=== PATIENT | male | born 1945 | race Caucasian/White ===

== ENCOUNTER 2018-03-26 11:53 | Inpatient (IN) | payer MEDICARE ==
[2018-03-26 12:47] LABS: ADD MAN DIFF? NO
[2018-03-26] MEDS: CEFEPIME 2GM/50 ML (PMX) 50 ML IVPB (12:54)
[2018-03-26 12:55] LABS: ABNORMAL IP MESSAGE 1; BASOPHILS % 0.2 % (0.0-2.0); HEMATOCRIT 40.5 % (42.0-52.0); LYMPHOCYTES # 0.6 10^3/ul (0.8-2.9); LYMPHOCYTES % 5.3 % (15.0-51.0); MEAN CORPUSCULAR HEMOGLOBIN 29.8 pg (29.0-33.0); MEAN CORPUSCULAR HGB CONC 34.6 g/dl (32.0-37.0); MEAN CORPUSCULAR VOLUME 86.2 fl (82.0-101.0); MEAN PLATELET VOLUME 12.4 fl (7.4-10.4); MONOCYTES % 9.2 % (0.0-11.0); NEUTROPHIL # 9.3 10^3/ul (1.6-7.5); NEUTROPHILS % 84.8 % (39.0-77.0); PLATELET COUNT 228 10^3/UL (140-415); POSITIVE DIFF @See below; RED CELL DISTRIBUTION WIDTH 12.1 % (11.5-14.5)
[2018-03-26] MEDS: LORAZEPAM 2 MG INJ IV (12:55)
[2018-03-26] MEDS: SODIUM CHLORIDE 0.9% 1L BAG IV* (12:55)
[2018-03-26 13:13] LABS: MAGNESIUM 2.8 mg/dl (1.7-2.5)
[2018-03-26 13:13] LABS: PHOSPHORUS 7.7 mg/dl (2.5-4.9)
[2018-03-26 13:14] LABS: ALANINE AMINOTRANSFERASE 46 IU/L (13-69); ALBUMIN 3.5 g/dl (3.3-4.9); ALBUMIN/GLOBULIN RATIO 1.09; ALKALINE PHOSPHATASE 144 IU/L (42-121); AMYLASE 172 U/L (11-123); ANION GAP 26 (8-16); ASPARTATE AMINO TRANSFERASE 56 IU/L (15-46); BILIRUBIN,INDIRECT 0.4 mg/dl (0-1.1); BILIRUBIN,TOTAL 0.4 mg/dl (0.2-1.3); BLOOD UREA NITROGEN 93 mg/dl (7-20); CALCIUM 7.9 mg/dl (8.4-10.2); CARBON DIOXIDE 22 mmol/L (21-31); CHLORIDE 80 mmol/L (97-110); LIPASE 717 U/L (23-300); POTASSIUM 4.6 mmol/L (3.5-5.1); SODIUM 123 mmol/L (135-144); TOTAL PROTEIN 6.7 g/dl (6.1-8.1)
[2018-03-26 13:22] LABS: INR 1.24; PARTIAL THROMBOPLASTIN TIME 27.2 Sec (25.0-35.0); PROTIME 15.8 Sec (11.9-14.9); PT RATIO 1.2
[2018-03-26 13:23] LABS: GLUCOSE 1091 mg/dl (70-220)
[2018-03-26] MEDS ORDERED: SODIUM CHLORIDE 23.4% 77 MEQ, POTASSIUM CHLORIDE 40 MEQ in DEXTROSE 10% 1,000 ML IV ×2 (13:23→13:41)
[2018-03-26] MEDS ORDERED: SODIUM CHLORIDE 23.4% 77 MEQ, POTASSIUM CHLORIDE 30 MEQ in DEXTROSE 10% 1,000 ML IV (13:23)
[2018-03-26] MEDS ORDERED: SOD CHLORIDE 0.9% 1,000 ML IV ×2 (13:23→13:41)
[2018-03-26] MEDS ORDERED: POTASSIUM CHLORIDE 40 MEQ in SOD CHLORIDE 0.9% 1,000 ML IV ×2 (13:23→13:41)
[2018-03-26] MEDS ORDERED: SODIUM CHLORIDE 23.4% 77 MEQ in DEXTROSE 10% 1,000 ML IV ×2 (13:23→13:41)
[2018-03-26] MEDS ORDERED: POTASSIUM CHLORIDE 30 MEQ in SOD CHLORIDE 0.9% 1,000 ML IV (13:23)
[2018-03-26 13:26] LABS: LACTIC ACID 4.4 mmol/L (0.5-2.0)
[2018-03-26 13:28] LABS: TROPONIN-I 0.172 ng/ml (0.000-0.120)
[2018-03-26] MEDS: LACTATED RINGER'S 750 ML IV (13:30)
[2018-03-26] MEDS ORDERED: DEXTROSE 50% 50 ML SYRINGE IV ×4 (13:30→14:00)
[2018-03-26] MEDS ORDERED: INSULIN REGULAR, HUMAN 100 UNIT in SOD CHLORIDE 0.9% 100 ML IV (13:30)
[2018-03-26 13:40] LABS: Arterial Base Excess -5.2 mmol/L (-3.0-3); Arterial Blood Gas Oxygen Sat 34.6 mmHG (95.0-100.0); Arterial COHb 0.1 % (0.0-3.0); Arterial Fraction of Oxyhgb 34.1 % (93.0-99.0); Arterial HCO3 20.4 mmol/L (22.0-26.0); Arterial MetHb 1.4 % (0.0-1.5); Arterial Total Hemglobin 13.4 g/dl (12.0-18.0); Arterial pCO2 40.4 mmhg (35-45); MODE ROOM AIR; Sample Type Blood venous; Site VENOUS LINE
[2018-03-26] MEDS ORDERED: NACL 0.9% 3 ML SYG IV (14:00)
[2018-03-26] MEDS ORDERED: hydrALAzine 20 MG INJ IV (14:00)
[2018-03-26] MEDS ORDERED: morphine 2 MG INJ IV (14:00)
[2018-03-26] MEDS ORDERED: HEPARIN 1000 UNITS/ML 10 ML INJ IV (14:00)
[2018-03-26] MEDS ORDERED: ONDANSETRON 4 MG INJ IV (14:00)
[2018-03-26] MEDS: LEVOFLOXACIN 750MG/D5W (PMX) 150 ML IVPB (14:00)
[2018-03-26] MEDS ORDERED: NA PHOSPHATE/BIPHOS 133 ML ENEMA PR (14:00)
[2018-03-26] MEDS: HEPARIN 1000 UNITS/ML 10 ML INJ IV (14:00)
[2018-03-26] MEDS ORDERED: NITROGLYCERIN (SL) 0.4 MG TAB SL (14:00)
[2018-03-26] MEDS ORDERED: ALBUTEROL/IPRATROPIUM (NEB) 3 ML AMP HHN (14:00)
[2018-03-26] MEDS ORDERED: HEPARIN 25000 UNITS/250 ML 250 ML IV (14:00)
[2018-03-26] MEDS: VANCOMYCIN 1 GM (PMX) 250 ML IVPB (14:10)
[2018-03-26 14:24] LABS: CREATINE KINASE 118 IU/L (23-200)
[2018-03-26 14:33] LABS: ADD UMIC YES; UR ASCORBIC ACID NEGATIVE (NEGATIVE); UR BILIRUBIN (Dip) NEGATIVE (NEGATIVE); UR BLOOD (Dip) 2+ mg/dL (NEGATIVE); UR CLARITY SLIGHTLY CLOUDY (CLEAR); UR COLOR YELLOW (YELLOW); UR GLUCOSE (Dip) 3+ mg/dL (NEGATIVE); UR KETONES (Dip) NEGATIVE (NEGATIVE); UR LEUKOCYTE ESTERASE (Dip) NEGATIVE Leu/ul (NEGATIVE); UR NITRITE (Dip) NEGATIVE (NEGATIVE); UR RBC 5 /HPF (0-5); UR SPECIFIC GRAVITY (Dip) 1.015 (1.003-1.030); UR TOTAL PROTEIN (Dip) NEGATIVE (NEGATIVE); UR UROBILINOGEN (Dip) NEGATIVE (NEGATIVE); UR WBC 1 /HPF (0-5)
[2018-03-26 14:34] LABS: CK-MB 2.83 ng/ml (0.0-2.4)
[2018-03-26] MEDS: INSULIN REGULAR, HUMAN 100 UNIT in SOD CHLORIDE 0.9% 100 ML IV (14:50)
[2018-03-26 14:55] LABS: FREE T4 (FREE THYROXINE) 1.01 ng/dl (0.78-2.44)
[2018-03-26] MEDS: POTASSIUM CHLORIDE 30 MEQ in SOD CHLORIDE 0.9% 1,000 ML IV (15:00)
[2018-03-26 15:09] LABS: AADO2 Venous 79.6 mmHg; MODE ROOM AIR; MetHgb Venous 1.4 %; Sample Type Blood venous; Site VENOUS LINE; Venous COHb 0.2 %; Venous Fraction OxyHgb 31.4 %; Venous Oxygen Sat 31.9 mmHG (55.0-75.0); Venous Total Hemglobin 15.8 g/dl
[2018-03-26 15:23] LABS: ANION GAP 23 (8-16); BLOOD UREA NITROGEN 89 mg/dl (7-20); CALCIUM 7.3 mg/dl (8.4-10.2); CARBON DIOXIDE 20 mmol/L (21-31); CHLORIDE 89 mmol/L (97-110); CREATININE 4.25 mg/dl (0.61-1.24); MAGNESIUM 2.8 mg/dl (1.7-2.5); PHOSPHORUS 6.7 mg/dl (2.5-4.9); POTASSIUM 4.6 mmol/L (3.5-5.1); SODIUM 127 mmol/L (135-144)
[2018-03-26 15:26] LABS: LACTIC ACID 2.3 mmol/L (0.5-2.0)
[2018-03-26 15:32] LABS: GLUCOSE 943 mg/dl (70-220)
[2018-03-26] MEDS: FAMOTIDINE 20 MG INJ IV (15:48)
[2018-03-26] MEDS: ASPIRIN 600 MG SUPP PR (15:48)
[2018-03-26 16:38] LABS: CREATININE,URINE RANDOM 21.91 mg/dl (20-370); CREATININE,URINE RANDOM 22.48 mg/dl (20-370); PROTEIN/CREAT RATIO 0.73 RATIO
[2018-03-26 16:40] LABS: SODIUM,URINE RANDOM < 13 mmol/L (30-90)
[2018-03-26] MEDS: SODIUM CHLORIDE 23.4% 77 MEQ, POTASSIUM CHLORIDE 30 MEQ in DEXTROSE 10% 1,000 ML IV ×2 (17:18→23:00)
[2018-03-26 17:48] LABS: CREATINE KINASE 128 IU/L (23-200)
[2018-03-26 17:54] LABS: LACTIC ACID 8.9 mmol/L (0.5-2.0)
[2018-03-26 18:02] LABS: CK INDEX 2.3; CK-MB 2.97 ng/ml (0.0-2.4)
[2018-03-26 18:11] LABS: TROPONIN-I 0.136 ng/ml (0.000-0.120)
[2018-03-26 18:31] LABS: ANION GAP 23 (8-16); BLOOD UREA NITROGEN 85 mg/dl (7-20); CARBON DIOXIDE 17 mmol/L (21-31); CHLORIDE 99 mmol/L (97-110); CREATININE 3.74 mg/dl (0.61-1.24); PHOSPHORUS 5.6 mg/dl (2.5-4.9); POTASSIUM 3.6 mmol/L (3.5-5.1); SODIUM 135 mmol/L (135-144)
[2018-03-26 18:38] LABS: GLUCOSE 487 mg/dl (70-220)
[2018-03-26] MEDS: ACCU-CHEK XX ×5 (19:00→23:00)
[2018-03-26 21:03] LABS: MODE NASAL CANNULA; MetHgb Venous 0.4 %; Sample Type Blood venous; Site VENOUS LINE; Venous COHb 0.4 %; Venous Fraction OxyHgb 51.3 %; Venous Oxygen Sat 51.7 mmHG (55.0-75.0)
[2018-03-26 21:52] LABS: ACETONE NEGATIVE (NEGATIVE)
[2018-03-26 22:28] LABS: ANION GAP 15 (8-16); BLOOD UREA NITROGEN 79 mg/dl (7-20); CALCIUM 7.7 mg/dl (8.4-10.2); CARBON DIOXIDE 21 mmol/L (21-31); CHLORIDE 107 mmol/L (97-110); CREATININE 2.77 mg/dl (0.61-1.24); GLUCOSE 136 mg/dl (70-220); MAGNESIUM 2.9 mg/dl (1.7-2.5); PHOSPHORUS 3.8 mg/dl (2.5-4.9); POTASSIUM 3.8 mmol/L (3.5-5.1); SODIUM 139 mmol/L (135-144)
[2018-03-26 22:32] LABS: LACTIC ACID 4.9 mmol/L (0.5-2.0)
[2018-03-27] MEDS: ACCU-CHEK XX ×9 (00:45→08:11)
[2018-03-27 01:14] LABS: LACTIC ACID 3.3 mmol/L (0.5-2.0)
[2018-03-27] MEDS: INSULIN REGULAR, HUMAN 100 UNIT in SOD CHLORIDE 0.9% 100 ML IV (02:00)
[2018-03-27 02:13] LABS: MODE NASAL CANNULA; MetHgb Venous 0.5 %; Sample Type Blood venous; Site VENOUS LINE; Venous COHb 0.3 %; Venous Fraction OxyHgb 45.5 %; Venous Oxygen Sat 45.9 mmHG (55.0-75.0); Venous Total Hemglobin 14.1 g/dl
[2018-03-27 02:21] LABS: PROTEIN, TOTAL 6.6 g/dL (6.1-8.1)
[2018-03-27 02:39] LABS: ANION GAP 12 (8-16); BLOOD UREA NITROGEN 69 mg/dl (7-20); CALCIUM 7.5 mg/dl (8.4-10.2); CARBON DIOXIDE 24 mmol/L (21-31); CHLORIDE 113 mmol/L (97-110); CREATININE 2.24 mg/dl (0.61-1.24); MAGNESIUM 2.8 mg/dl (1.7-2.5); PHOSPHORUS 2.8 mg/dl (2.5-4.9); SODIUM 145 mmol/L (135-144)
[2018-03-27 02:44] LABS: LACTIC ACID 2.9 mmol/L (0.5-2.0)
[2018-03-27 02:45] LABS: GLUCOSE 49 mg/dl (70-220)
[2018-03-27 03:21] LABS: ANION GAP 12 (8-16); BLOOD UREA NITROGEN 65 mg/dl (7-20); CALCIUM 7.5 mg/dl (8.4-10.2); CARBON DIOXIDE 22 mmol/L (21-31); CHLORIDE 114 mmol/L (97-110); CREATININE 2.07 mg/dl (0.61-1.24); GLUCOSE 88 mg/dl (70-220); POTASSIUM 3.8 mmol/L (3.5-5.1); SODIUM 144 mmol/L (135-144)
[2018-03-27] MEDS: POTASSIUM CHLORIDE 30 MEQ in SOD CHLORIDE 0.9% 1,000 ML IV (03:28)
[2018-03-27] MEDS: SODIUM CHLORIDE 23.4% 77 MEQ, POTASSIUM CHLORIDE 30 MEQ in DEXTROSE 10% 1,000 ML IV (04:12)
[2018-03-27 05:52] LABS: MODE NASAL CANNULA; MetHgb Venous 0.3 %; Sample Type Blood venous; Site VENOUS LINE; Venous COHb 0.4 %; Venous Fraction OxyHgb 39.8 %; Venous Oxygen Sat 40.1 mmHG (55.0-75.0); Venous Total Hemglobin 13.5 g/dl
[2018-03-27] MEDS ORDERED: GLUCOSE GEL 15 GRAM TUBE BUCCAL ×2 (06:00→09:30)
[2018-03-27] MEDS ORDERED: DEXTROSE 50% 50 ML SYRINGE IV ×3 (06:00→09:30)
[2018-03-27] MEDS ORDERED: GLUCOSE GEL 15 GRAM TUBE PO ×4 (06:00→09:30)
[2018-03-27] MEDS ORDERED: GLUCAGON 1 MG INJ IM ×2 (06:00→09:30)
[2018-03-27] MEDS: INSULIN GLARGINE [LANTus] (100 UNITS/ML) SYG SC (06:27)
[2018-03-27 06:47] LABS: ADD MAN DIFF? NO
[2018-03-27 06:54] LABS: BASOPHILS % 0.1 % (0.0-2.0); EOSINOPHILS % 0.1 % (0.0-7.0); HEMATOCRIT 34.4 % (42.0-52.0); HEMOGLOBIN 11.8 g/dl (14.0-18.0); LYMPHOCYTES % 11.9 % (15.0-51.0); MEAN CORPUSCULAR HEMOGLOBIN 29.5 pg (29.0-33.0); MEAN CORPUSCULAR HGB CONC 34.3 g/dl (32.0-37.0); MEAN PLATELET VOLUME 12.3 fl (7.4-10.4); MONOCYTE # 0.7 10^3/ul (0.3-0.9); MONOCYTES % 8.7 % (0.0-11.0); NEUTROPHIL # 6.3 10^3/ul (1.6-7.5); NEUTROPHILS % 78.5 % (39.0-77.0); PLATELET COUNT 155 10^3/UL (140-415); RED CELL DISTRIBUTION WIDTH 12.6 % (11.5-14.5)
[2018-03-27 06:54] LABS: WHITE BLOOD COUNT 8.1 10^3/ul (4.8-10.8)
[2018-03-27 07:18] LABS: LACTIC ACID 1.8 mmol/L (0.5-2.0)
[2018-03-27 07:21] LABS: CHOL/HDL RATIO 3.3 RATIO; HDL CHOLESTEROL 26 mg/dl (31-75); LDL CHOLESTEROL,CALCULATED 43 mg/dl; TRIGLYCERIDES 93 mg/dl (0-149)
[2018-03-27 07:21] LABS: CHOLESTEROL 88 mg/dl (100-200)
[2018-03-27 07:22] LABS: ANION GAP 9 (8-16); BLOOD UREA NITROGEN 58 mg/dl (7-20); CALCIUM 7.3 mg/dl (8.4-10.2); CARBON DIOXIDE 23 mmol/L (21-31); CHLORIDE 117 mmol/L (97-110); CREATININE 1.74 mg/dl (0.61-1.24); GLUCOSE 86 mg/dl (70-220); MAGNESIUM 2.6 mg/dl (1.7-2.5); PHOSPHORUS 2.4 mg/dl (2.5-4.9); POTASSIUM 3.8 mmol/L (3.5-5.1); SODIUM 145 mmol/L (135-144)
[2018-03-27 07:23] LABS: LIPASE 109 U/L (23-300)
[2018-03-27] MEDS: FAMOTIDINE 20 MG INJ IV (08:05)
[2018-03-27] MEDS: ASPIRIN 300 MG SUPP PR (08:05)
[2018-03-27] MEDS: SOD CHLORIDE 0.9% 500 ML IV (09:42)
[2018-03-27 09:46] LABS: AADO2 Arterial 34.7 mmHg (7.0-24.0); Allen Test ACCEPTAB; Arterial Base Excess -1.9 mmol/L (-3.0-3); Arterial Blood Gas Oxygen Sat 95.2 mmHG (95.0-100.0); Arterial COHb 0.1 % (0.0-3.0); Arterial Fraction of Oxyhgb 94.9 % (93.0-99.0); Arterial HCO3 21.8 mmol/L (22.0-26.0); Arterial MetHb 0.2 % (0.0-1.5); Arterial Total Hemglobin 13.3 g/dl (12.0-18.0); Arterial pCO2 33.6 mmhg (35-45); MODE ROOM AIR; Site Right Radial
[2018-03-27] MEDS ORDERED: [UNRECOGNIZED DRUG - OTHER] IV (10:00)
[2018-03-27] MEDS ORDERED: POTASSIUM PHOSPHATE IV (10:00)
[2018-03-27] MEDS ORDERED: POTASSIUM CHLORIDE IV (10:00)
[2018-03-27 10:07] LABS: LACTIC ACID 2.1 mmol/L (0.5-2.0)
[2018-03-27 10:23] LABS: IRON 33 ug/dl (35-150)
[2018-03-27 10:25] LABS: ANION GAP 19 (8-16); BLOOD UREA NITROGEN 67 mg/dl (7-20); CALCIUM 7.5 mg/dl (8.4-10.2); CARBON DIOXIDE 22 mmol/L (21-31); CHLORIDE 115 mmol/L (97-110); CREATININE 2.17 mg/dl (0.61-1.24); MAGNESIUM 2.7 mg/dl (1.7-2.5); PHOSPHORUS 3.1 mg/dl (2.5-4.9); SODIUM 152 mmol/L (135-144)
[2018-03-27 10:27] LABS: GLUCOSE 41 mg/dl (70-220)
[2018-03-27] MEDS: INSULIN ASPART [NOVOLOG] 3 ML PEN SC ×3 (10:30→20:35)
[2018-03-27 10:32] LABS: % IRON SATURATION 18 % SAT (22-52); TOTAL IRON BINDING CAPACITY 179 ug/dl (241-421)
[2018-03-27] MEDS: DEXTROSE 50% 50 ML SYRINGE IV (10:32)
[2018-03-27] MEDS: LEVOFLOXACIN 500MG/D5W (PMX) 100 ML IVPB (10:43)
[2018-03-27] MEDS ORDERED: POTASSIUM PHOSPHATE 10 MEQ in SOD CHLORIDE 0.9% 250 ML IVPB (11:00)
[2018-03-27 11:13] LABS: TROPONIN-I 0.127 ng/ml (0.000-0.120)
[2018-03-27] MEDS: LACTATED RINGER'S 500 ML IV ×2 (12:30→17:50)
[2018-03-27 16:02] LABS: ALBUMIN 3.2 g/dL (3.8-4.8); ALPHA-1-GLOBULINS 0.6 g/dL (0.2-0.3); ALPHA-2-GLOBULINS 1.3 g/dL (0.5-0.9); BETA 2 GLOBULINS 0.4 g/dL (0.2-0.5); BETA GLOBULINS 0.5 g/dL (0.4-0.6); GAMMA GLOBULINS 0.7 g/dL (0.8-1.7)
[2018-03-27] MEDS: LACTATED RINGER'S 1,000 ML IV ×2 (16:35→22:50)
[2018-03-27 20:32] LABS: PTH CALCIUM 7.8 mg/dL (8.6-10.3)
[2018-03-27] MEDS: LORAZEPAM 2 MG INJ IV (20:44)
[2018-03-27 22:43] LABS: ANION GAP 12 (8-16); BLOOD UREA NITROGEN 35 mg/dl (7-20); CALCIUM 7.5 mg/dl (8.4-10.2); CARBON DIOXIDE 25 mmol/L (21-31); CHLORIDE 117 mmol/L (97-110); CREATININE 1.27 mg/dl (0.61-1.24); GLUCOSE 215 mg/dl (70-220); MAGNESIUM 2.3 mg/dl (1.7-2.5); POTASSIUM 3.6 mmol/L (3.5-5.1); SODIUM 150 mmol/L (135-144)
[2018-03-27 22:53] LABS: TROPONIN-I 0.092 ng/ml (0.000-0.120)
[2018-03-28] MEDS: ACCU-CHEK XX ×3 (01:39→20:19)
[2018-03-28] MEDS: LORAZEPAM 2 MG INJ IV ×2 (02:17→12:46)
[2018-03-28 02:56] LABS: ADD MAN DIFF? NO
[2018-03-28 02:58] LABS: BASOPHILS % 0.1 % (0.0-2.0); EOSINOPHILS # 0.1 10^3/ul (0.0-0.5); EOSINOPHILS % 1.2 % (0.0-7.0); HEMATOCRIT 37.7 % (42.0-52.0); HEMOGLOBIN 12.6 g/dl (14.0-18.0); MEAN CORPUSCULAR HEMOGLOBIN 29.4 pg (29.0-33.0); MEAN CORPUSCULAR HGB CONC 33.4 g/dl (32.0-37.0); MEAN CORPUSCULAR VOLUME 87.9 fl (82.0-101.0); MEAN PLATELET VOLUME 11.5 fl (7.4-10.4); MONOCYTE # 0.7 10^3/ul (0.3-0.9); MONOCYTES % 8.3 % (0.0-11.0); NEUTROPHIL # 6.7 10^3/ul (1.6-7.5); NEUTROPHILS % 76.7 % (39.0-77.0); PLATELET COUNT 202 10^3/UL (140-415); RED BLOOD COUNT 4.29 10^6/ul (4.70-6.10)
[2018-03-28 02:58] LABS: WHITE BLOOD COUNT 8.7 10^3/ul (4.8-10.8)
[2018-03-28 03:18] LABS: ANION GAP 12 (8-16); BLOOD UREA NITROGEN 29 mg/dl (7-20); CALCIUM 7.6 mg/dl (8.4-10.2); CARBON DIOXIDE 26 mmol/L (21-31); CHLORIDE 116 mmol/L (97-110); CREATININE 1.22 mg/dl (0.61-1.24); GLUCOSE 254 mg/dl (70-220); MAGNESIUM 2.3 mg/dl (1.7-2.5); PHOSPHORUS 2.1 mg/dl (2.5-4.9); POTASSIUM 3.7 mmol/L (3.5-5.1); SODIUM 150 mmol/L (135-144)
[2018-03-28 03:36] LABS: TROPONIN-I 0.105 ng/ml (0.000-0.120)
[2018-03-28 07:31] LABS: PTH INTACT 89 pg/mL (14-64)
[2018-03-28] MEDS: INSULIN GLARGINE [LANTus] (100 UNITS/ML) SYG SC (08:06)
[2018-03-28] MEDS: INSULIN ASPART [NOVOLOG] 3 ML PEN SC ×4 (08:06→20:18)
[2018-03-28] MEDS: MULTIVITAMINS THERAPEUTIC TAB PO (09:36)
[2018-03-28] MEDS: FAMOTIDINE 20 MG INJ IV (09:36)
[2018-03-28] MEDS: ASPIRIN 300 MG SUPP PR (09:36)
[2018-03-28] MEDS: FERROUS SULFATE (SR) 142 MG TAB PO ×2 (11:00→20:18)
[2018-03-28] MEDS: DEXTROSE 5% IV (11:39)
[2018-03-28] MEDS: POTASSIUM PHOSPHATE IV (11:39)
[2018-03-28] MEDS: POTASSIUM CHLORIDE IV (11:39)
[2018-03-28] MEDS: POTASSIUM PHOSPHATE 20 MEQ in SOD CHLORIDE 0.9% 250 ML IVPB (11:39)
[2018-03-28] MEDS: LINAGLIPTIN 5 MG TABLET PO (16:22)
[2018-03-28] MEDS: LACTATED RINGER'S 500 ML IV (16:23)
[2018-03-28 17:10] LABS: ANION GAP 11 (8-16); BLOOD UREA NITROGEN 22 mg/dl (7-20); CALCIUM 7.6 mg/dl (8.4-10.2); CARBON DIOXIDE 31 mmol/L (21-31); CHLORIDE 116 mmol/L (97-110); CREATININE 1.12 mg/dl (0.61-1.24); GLUCOSE 118 mg/dl (70-220); POTASSIUM 3.9 mmol/L (3.5-5.1); SODIUM 154 mmol/L (135-144)
[2018-03-28] MEDS: metFORMIN 500 MG TAB PO (17:42)
[2018-03-29] MEDS: ACCU-CHEK XX ×5 (02:00→21:00)
[2018-03-29] MEDS: DEXTROSE 5% IV ×2 (02:27→06:10)
[2018-03-29] MEDS: POTASSIUM CHLORIDE IV ×2 (02:27→06:10)
[2018-03-29] MEDS: POTASSIUM PHOSPHATE IV ×2 (02:27→06:10)
[2018-03-29 06:14] LABS: ADD MAN DIFF? NO
[2018-03-29 06:35] LABS: WHITE BLOOD COUNT 9.9 10^3/ul (4.8-10.8)
[2018-03-29 06:35] LABS: BASOPHILS % 0.4 % (0.0-2.0); EOSINOPHILS # 0.3 10^3/ul (0.0-0.5); EOSINOPHILS % 3.2 % (0.0-7.0); HEMATOCRIT 36.8 % (42.0-52.0); HEMOGLOBIN 12.3 g/dl (14.0-18.0); LYMPHOCYTES # 1.5 10^3/ul (0.8-2.9); LYMPHOCYTES % 14.9 % (15.0-51.0); MEAN CORPUSCULAR HEMOGLOBIN 30.4 pg (29.0-33.0); MEAN CORPUSCULAR HGB CONC 33.4 g/dl (32.0-37.0); MEAN CORPUSCULAR VOLUME 90.9 fl (82.0-101.0); MEAN PLATELET VOLUME 11.8 fl (7.4-10.4); MONOCYTE # 0.9 10^3/ul (0.3-0.9); MONOCYTES % 8.8 % (0.0-11.0); NEUTROPHIL # 6.8 10^3/ul (1.6-7.5); NEUTROPHILS % 69.1 % (39.0-77.0); PLATELET COUNT 195 10^3/UL (140-415); RED BLOOD COUNT 4.05 10^6/ul (4.70-6.10); RED CELL DISTRIBUTION WIDTH 12.9 % (11.5-14.5)
[2018-03-29 06:47] LABS: ANION GAP 10 (8-16); BLOOD UREA NITROGEN 16 mg/dl (7-20); CALCIUM 7.3 mg/dl (8.4-10.2); CARBON DIOXIDE 29 mmol/L (21-31); CHLORIDE 112 mmol/L (97-110); CREATININE 1.03 mg/dl (0.61-1.24); GLUCOSE 309 mg/dl (70-220); POTASSIUM 3.4 mmol/L (3.5-5.1); SODIUM 148 mmol/L (135-144)
[2018-03-29 07:10] LABS: MAGNESIUM 1.8 mg/dl (1.7-2.5)
[2018-03-29 07:10] LABS: PHOSPHORUS 2.9 mg/dl (2.5-4.9)
[2018-03-29] MEDS: FAMOTIDINE 20 MG INJ IV (08:24)
[2018-03-29] MEDS: LEVOFLOXACIN 500MG/D5W (PMX) 100 ML IVPB (08:24)
[2018-03-29] MEDS: LINAGLIPTIN 5 MG TABLET PO (08:24)
[2018-03-29] MEDS: ASPIRIN 81 MG TAB PO (08:24)
[2018-03-29] MEDS: FERROUS SULFATE (SR) 142 MG TAB PO ×2 (08:24→21:06)
[2018-03-29] MEDS: MULTIVITAMINS THERAPEUTIC TAB PO (08:24)
[2018-03-29] MEDS: INSULIN ASPART [NOVOLOG] 3 ML PEN SC ×4 (08:32→21:00)
[2018-03-29] MEDS: INSULIN GLARGINE [LANTus] (100 UNITS/ML) SYG SC (08:33)
[2018-03-29] MEDS: 1/2 NS + KCL 20 MEQ 1,000 ML IV ×3 (12:19→21:07)
[2018-03-29] MEDS: NYSTATIN 15 GM CR TOP ×2 (16:01→21:08)
[2018-03-30] MEDS: ACCU-CHEK XX ×5 (02:00→20:15)
[2018-03-30 06:55] LABS: ADD MAN DIFF? NO
[2018-03-30 07:02] LABS: BASOPHILS % 0.3 % (0.0-2.0); EOSINOPHILS # 0.4 10^3/ul (0.0-0.5); EOSINOPHILS % 4.5 % (0.0-7.0); HEMATOCRIT 35.1 % (42.0-52.0); HEMOGLOBIN 11.6 g/dl (14.0-18.0); LYMPHOCYTES # 1.6 10^3/ul (0.8-2.9); LYMPHOCYTES % 15.9 % (15.0-51.0); MEAN CORPUSCULAR HEMOGLOBIN 29.6 pg (29.0-33.0); MEAN CORPUSCULAR VOLUME 89.5 fl (82.0-101.0); MEAN PLATELET VOLUME 11.3 fl (7.4-10.4); MONOCYTES % 9.9 % (0.0-11.0); NEUTROPHIL # 6.6 10^3/ul (1.6-7.5); NEUTROPHILS % 66.8 % (39.0-77.0); PLATELET COUNT 198 10^3/UL (140-415); RED BLOOD COUNT 3.92 10^6/ul (4.70-6.10); RED CELL DISTRIBUTION WIDTH 12.7 % (11.5-14.5)
[2018-03-30 07:02] LABS: WHITE BLOOD COUNT 9.8 10^3/ul (4.8-10.8)
[2018-03-30 07:28] LABS: ANION GAP 10 (8-16); BLOOD UREA NITROGEN 11 mg/dl (7-20); CALCIUM 7.4 mg/dl (8.4-10.2); CARBON DIOXIDE 29 mmol/L (21-31); CHLORIDE 108 mmol/L (97-110); CREATININE 0.91 mg/dl (0.61-1.24); GLUCOSE 159 mg/dl (70-220); POTASSIUM 4.2 mmol/L (3.5-5.1); SODIUM 143 mmol/L (135-144)
[2018-03-30] MEDS: LINAGLIPTIN 5 MG TABLET PO (07:50)
[2018-03-30] MEDS: INSULIN ASPART [NOVOLOG] 3 ML PEN SC ×4 (07:55→20:14)
[2018-03-30] MEDS: INSULIN GLARGINE [LANTus] (100 UNITS/ML) SYG SC (07:56)
[2018-03-30] MEDS: FAMOTIDINE 20 MG INJ IV (09:25)
[2018-03-30] MEDS: NYSTATIN 15 GM CR TOP ×2 (09:25→20:14)
[2018-03-30] MEDS: ASPIRIN 81 MG TAB PO (09:25)
[2018-03-30] MEDS: 1/2 NS + KCL 20 MEQ 1,000 ML IV (09:25)
[2018-03-30] MEDS: MULTIVITAMINS THERAPEUTIC TAB PO (09:25)
[2018-03-30] MEDS: FERROUS SULFATE (SR) 142 MG TAB PO ×2 (09:25→20:08)
[2018-03-30 11:39] LABS: ADD UMIC YES; UR ASCORBIC ACID NEGATIVE (NEGATIVE); UR BACTERIA FEW /HPF (NONE SEEN); UR BILIRUBIN (Dip) NEGATIVE (NEGATIVE); UR BLOOD (Dip) 3+ mg/dL (NEGATIVE); UR CLARITY SLIGHTLY CLOUDY (CLEAR); UR COLOR YELLOW (YELLOW); UR GLUCOSE (Dip) 3+ mg/dL (NEGATIVE); UR KETONES (Dip) NEGATIVE (NEGATIVE); UR LEUKOCYTE ESTERASE (Dip) 2+ Leu/ul (NEGATIVE); UR MUCUS FEW /HPF (NONE SEEN); UR NITRITE (Dip) NEGATIVE (NEGATIVE); UR RBC 75 /HPF (0-5); UR SPECIFIC GRAVITY (Dip) 1.003 (1.003-1.030); UR SQUAMOUS EPITHELIAL CELL FEW /HPF (FEW); UR TOTAL PROTEIN (Dip) 1+ mg/dl (NEGATIVE); UR UROBILINOGEN (Dip) NEGATIVE (NEGATIVE); UR WBC 17 /HPF (0-5)
[2018-03-30] MEDS: FLUCONAZOLE 200 MG (PMX) 100 ML IVPB (12:55)
[2018-03-31] MEDS: ACCU-CHEK XX ×5 (02:00→21:00)
[2018-03-31 06:52] LABS: ADD MAN DIFF? NO
[2018-03-31 07:04] LABS: BASOPHILS % 0.2 % (0.0-2.0); EOSINOPHILS # 0.3 10^3/ul (0.0-0.5); EOSINOPHILS % 3.2 % (0.0-7.0); HEMATOCRIT 35.1 % (42.0-52.0); HEMOGLOBIN 11.9 g/dl (14.0-18.0); LYMPHOCYTES # 1.7 10^3/ul (0.8-2.9); LYMPHOCYTES % 15.9 % (15.0-51.0); MEAN CORPUSCULAR HEMOGLOBIN 29.5 pg (29.0-33.0); MEAN CORPUSCULAR HGB CONC 33.9 g/dl (32.0-37.0); MEAN CORPUSCULAR VOLUME 86.9 fl (82.0-101.0); MEAN PLATELET VOLUME 11.2 fl (7.4-10.4); MONOCYTE # 1.1 10^3/ul (0.3-0.9); MONOCYTES % 10.6 % (0.0-11.0); NEUTROPHIL # 7.1 10^3/ul (1.6-7.5); NEUTROPHILS % 67.5 % (39.0-77.0); PLATELET COUNT 212 10^3/UL (140-415); RED BLOOD COUNT 4.04 10^6/ul (4.70-6.10); RED CELL DISTRIBUTION WIDTH 12.3 % (11.5-14.5)
[2018-03-31 07:04] LABS: WHITE BLOOD COUNT 10.6 10^3/ul (4.8-10.8)
[2018-03-31 07:19] LABS: ANION GAP 9 (8-16); BLOOD UREA NITROGEN 9 mg/dl (7-20); CALCIUM 7.7 mg/dl (8.4-10.2); CARBON DIOXIDE 27 mmol/L (21-31); CHLORIDE 107 mmol/L (97-110); GLUCOSE 193 mg/dl (70-220); POTASSIUM 3.5 mmol/L (3.5-5.1); SODIUM 139 mmol/L (135-144)
[2018-03-31] MEDS: FERROUS SULFATE (SR) 142 MG TAB PO (08:27)
[2018-03-31] MEDS: LINAGLIPTIN 5 MG TABLET PO (08:27)
[2018-03-31] MEDS: ASPIRIN 81 MG TAB PO (08:27)
[2018-03-31] MEDS: MULTIVITAMINS THERAPEUTIC TAB PO (08:27)
[2018-03-31] MEDS: NYSTATIN 15 GM CR TOP ×2 (09:00→21:34)
[2018-03-31] MEDS: INSULIN ASPART [NOVOLOG] 3 ML PEN SC ×4 (10:14→21:00)
[2018-03-31] MEDS: INSULIN GLARGINE [LANTus] (100 UNITS/ML) SYG SC (10:14)
[2018-03-31] MEDS: FAMOTIDINE 20 MG INJ IV (10:46)
[2018-03-31] MEDS: FLUCONAZOLE 200 MG (PMX) 100 ML IVPB (10:47)
[2018-03-31 14:13] LABS: ADD UMIC YES; UR ASCORBIC ACID NEGATIVE (NEGATIVE); UR BACTERIA FEW /HPF (NONE SEEN); UR BILIRUBIN (Dip) NEGATIVE (NEGATIVE); UR BLOOD (Dip) 2+ mg/dL (NEGATIVE); UR CLARITY CLEAR (CLEAR); UR COLOR YELLOW (YELLOW); UR GLUCOSE (Dip) 3+ mg/dL (NEGATIVE); UR KETONES (Dip) NEGATIVE (NEGATIVE); UR LEUKOCYTE ESTERASE (Dip) TRACE Leu/ul (NEGATIVE); UR NITRITE (Dip) NEGATIVE (NEGATIVE); UR RBC 86 /HPF (0-5); UR TOTAL PROTEIN (Dip) 1+ mg/dl (NEGATIVE); UR UROBILINOGEN (Dip) NEGATIVE (NEGATIVE); UR WBC 14 /HPF (0-5)
[2018-03-31] MEDS: metFORMIN 500 MG TAB PO (17:23)
[2018-03-31] MEDS: FERROUS SULFATE 60 MG/ML 5ML CUP PO (23:17)
[2018-04-01] MEDS: ACCU-CHEK XX ×5 (01:43→20:50)
[2018-04-01 06:02] LABS: ADD MAN DIFF? NO
[2018-04-01 06:08] LABS: WHITE BLOOD COUNT 20.1 10^3/ul (4.8-10.8)
[2018-04-01 06:08] LABS: ABNORMAL IP MESSAGE 1; BASOPHIL # 0.1 10^3/ul (0.0-0.1); BASOPHILS % 0.4 % (0.0-2.0); EOSINOPHILS # 0.1 10^3/ul (0.0-0.5); EOSINOPHILS % 0.4 % (0.0-7.0); HEMATOCRIT 43.6 % (42.0-52.0); HEMOGLOBIN 14.5 g/dl (14.0-18.0); LYMPHOCYTES # 1.3 10^3/ul (0.8-2.9); LYMPHOCYTES % 6.6 % (15.0-51.0); MEAN CORPUSCULAR HEMOGLOBIN 29.9 pg (29.0-33.0); MEAN CORPUSCULAR HGB CONC 33.3 g/dl (32.0-37.0); MEAN CORPUSCULAR VOLUME 89.9 fl (82.0-101.0); MEAN PLATELET VOLUME 11.6 fl (7.4-10.4); MONOCYTE # 1.8 10^3/ul (0.3-0.9); MONOCYTES % 8.7 % (0.0-11.0); NEUTROPHIL # 16.4 10^3/ul (1.6-7.5); NEUTROPHILS % 81.6 % (39.0-77.0); PLATELET COUNT 240 10^3/UL (140-415); POSITIVE DIFF @See below; RED BLOOD COUNT 4.85 10^6/ul (4.70-6.10); RED CELL DISTRIBUTION WIDTH 12.5 % (11.5-14.5)
[2018-04-01 08:07] LABS: ANION GAP 19 (8-16); BLOOD UREA NITROGEN 13 mg/dl (7-20); CALCIUM 8.3 mg/dl (8.4-10.2); CARBON DIOXIDE 21 mmol/L (21-31); CHLORIDE 106 mmol/L (97-110); CREATININE 0.99 mg/dl (0.61-1.24); GLUCOSE 262 mg/dl (70-220); POTASSIUM 4.5 mmol/L (3.5-5.1); SODIUM 141 mmol/L (135-144)
[2018-04-01] MEDS: INSULIN ASPART [NOVOLOG] 3 ML PEN SC ×7 (08:40→21:00)
[2018-04-01] MEDS: INSULIN GLARGINE [LANTus] (100 UNITS/ML) SYG SC ×2 (08:41→20:28)
[2018-04-01] MEDS: FERROUS SULFATE 60 MG/ML 5ML CUP PO ×2 (08:43→20:49)
[2018-04-01] MEDS: FAMOTIDINE 20 MG INJ IV (08:43)
[2018-04-01] MEDS: MULTIVITAMINS THERAPEUTIC TAB PO (08:43)
[2018-04-01] MEDS: ASPIRIN 81 MG TAB PO (08:43)
[2018-04-01] MEDS: LINAGLIPTIN 5 MG TABLET PO (08:44)
[2018-04-01] MEDS: NYSTATIN 15 GM CR TOP ×2 (08:44→22:50)
[2018-04-01] MEDS: LEVOFLOXACIN 750 MG TABLET PO (12:24)
[2018-04-01] MEDS: FLUCONAZOLE 200 MG (PMX) 100 ML IVPB (12:46)
[2018-04-01 13:41] LABS: LACTIC ACID 2.1 mmol/L (0.5-2.0)
[2018-04-01] MEDS: TAMSULOSIN (SR) 0.4 MG CAP PO (20:20)
[2018-04-01] MEDS: HEPARIN 5,000 UNIT/0.5 ML VIAL SC (20:23)
[2018-04-02 01:49] LABS: ADD UMIC YES; UR ASCORBIC ACID NEGATIVE (NEGATIVE); UR BILIRUBIN (Dip) NEGATIVE (NEGATIVE); UR BLOOD (Dip) 3+ mg/dL (NEGATIVE); UR CLARITY CLEAR (CLEAR); UR COLOR YELLOW (YELLOW); UR GLUCOSE (Dip) 3+ mg/dL (NEGATIVE); UR KETONES (Dip) NEGATIVE (NEGATIVE); UR LEUKOCYTE ESTERASE (Dip) NEGATIVE Leu/ul (NEGATIVE); UR NITRITE (Dip) NEGATIVE (NEGATIVE); UR RBC 3 /HPF (0-5); UR SPECIFIC GRAVITY (Dip) 1.005 (1.003-1.030); UR TOTAL PROTEIN (Dip) NEGATIVE (NEGATIVE); UR UROBILINOGEN (Dip) NEGATIVE (NEGATIVE); UR WBC 3 /HPF (0-5)
[2018-04-02] MEDS: ACCU-CHEK XX ×5 (02:00→21:00)
[2018-04-02] MEDS: SOD CHLORIDE 0.9% 500 ML IV (05:44)
[2018-04-02] MEDS: FAMOTIDINE 20 MG INJ IV (08:19)
[2018-04-02] MEDS: FERROUS SULFATE 60 MG/ML 5ML CUP PO ×2 (08:19→21:56)
[2018-04-02] MEDS: ASPIRIN 81 MG TAB PO (08:19)
[2018-04-02] MEDS: MULTIVITAMINS THERAPEUTIC TAB PO (08:19)
[2018-04-02] MEDS: INSULIN GLARGINE [LANTus] (100 UNITS/ML) SYG SC (08:21)
[2018-04-02] MEDS: INSULIN ASPART [NOVOLOG] 3 ML PEN SC ×7 (08:23→21:00)
[2018-04-02] MEDS: HEPARIN 5,000 UNIT/0.5 ML VIAL SC ×2 (08:27→22:01)
[2018-04-02 08:53] LABS: ADD MAN DIFF? NO
[2018-04-02 08:59] LABS: BASOPHILS % 0.2 % (0.0-2.0); EOSINOPHILS # 0.2 10^3/ul (0.0-0.5); EOSINOPHILS % 1.4 % (0.0-7.0); HEMATOCRIT 36.5 % (42.0-52.0); HEMOGLOBIN 11.9 g/dl (14.0-18.0); LYMPHOCYTES # 1.8 10^3/ul (0.8-2.9); LYMPHOCYTES % 16.5 % (15.0-51.0); MEAN CORPUSCULAR HEMOGLOBIN 29.5 pg (29.0-33.0); MEAN CORPUSCULAR HGB CONC 32.6 g/dl (32.0-37.0); MEAN CORPUSCULAR VOLUME 90.6 fl (82.0-101.0); MEAN PLATELET VOLUME 10.8 fl (7.4-10.4); MONOCYTE # 1.1 10^3/ul (0.3-0.9); MONOCYTES % 9.4 % (0.0-11.0); NEUTROPHIL # 7.9 10^3/ul (1.6-7.5); NEUTROPHILS % 70.4 % (39.0-77.0); PLATELET COUNT 269 10^3/UL (140-415); RED BLOOD COUNT 4.03 10^6/ul (4.70-6.10); RED CELL DISTRIBUTION WIDTH 12.8 % (11.5-14.5)
[2018-04-02 08:59] LABS: WHITE BLOOD COUNT 11.2 10^3/ul (4.8-10.8)
[2018-04-02 09:20] LABS: LACTIC ACID 0.9 mmol/L (0.5-2.0)
[2018-04-02 09:23] LABS: ANION GAP 9 (8-16); BLOOD UREA NITROGEN 14 mg/dl (7-20); CALCIUM 7.8 mg/dl (8.4-10.2); CARBON DIOXIDE 29 mmol/L (21-31); CHLORIDE 107 mmol/L (97-110); CREATININE 1.05 mg/dl (0.61-1.24); GLUCOSE 190 mg/dl (70-220); POTASSIUM 4.1 mmol/L (3.5-5.1); SODIUM 141 mmol/L (135-144)
[2018-04-02] MEDS: LEVOFLOXACIN 750 MG TABLET PO (12:29)
[2018-04-02] MEDS: NYSTATIN 15 GM CR TOP ×2 (12:30→22:07)
[2018-04-02] MEDS: CALCIUM CARBONATE 500 MG CHEW TAB PO ×2 (13:26→21:55)
[2018-04-02] MEDS: FINASTERIDE 5 MG TAB PO (13:26)
[2018-04-02] MEDS ORDERED: morphine LIQ (10 MG/5 ML) CUP PO (16:30)
[2018-04-02] MEDS: TAMSULOSIN (SR) 0.4 MG CAP PO (21:56)
[2018-04-03] MEDS: ACCU-CHEK XX ×5 (02:00→21:00)
[2018-04-03 04:54] LABS: ADD MAN DIFF? NO
[2018-04-03 05:04] LABS: WHITE BLOOD COUNT 9.6 10^3/ul (4.8-10.8)
[2018-04-03 05:04] LABS: BASOPHILS % 0.3 % (0.0-2.0); EOSINOPHILS # 0.3 10^3/ul (0.0-0.5); EOSINOPHILS % 2.7 % (0.0-7.0); HEMATOCRIT 37.5 % (42.0-52.0); HEMOGLOBIN 12.2 g/dl (14.0-18.0); LYMPHOCYTES # 1.7 10^3/ul (0.8-2.9); MEAN CORPUSCULAR HEMOGLOBIN 29.1 pg (29.0-33.0); MEAN CORPUSCULAR HGB CONC 32.5 g/dl (32.0-37.0); MEAN CORPUSCULAR VOLUME 89.5 fl (82.0-101.0); MEAN PLATELET VOLUME 10.7 fl (7.4-10.4); MONOCYTE # 0.8 10^3/ul (0.3-0.9); MONOCYTES % 8.2 % (0.0-11.0); NEUTROPHIL # 6.6 10^3/ul (1.6-7.5); NEUTROPHILS % 68.7 % (39.0-77.0); PLATELET COUNT 303 10^3/UL (140-415); RED BLOOD COUNT 4.19 10^6/ul (4.70-6.10); RED CELL DISTRIBUTION WIDTH 12.6 % (11.5-14.5)
[2018-04-03 05:25] LABS: ANION GAP 11 (8-16); BLOOD UREA NITROGEN 11 mg/dl (7-20); CALCIUM 8.3 mg/dl (8.4-10.2); CARBON DIOXIDE 28 mmol/L (21-31); CHLORIDE 105 mmol/L (97-110); CREATININE 0.92 mg/dl (0.61-1.24); GLUCOSE 183 mg/dl (70-220); POTASSIUM 3.4 mmol/L (3.5-5.1); SODIUM 141 mmol/L (135-144)
[2018-04-03] MEDS: INSULIN GLARGINE [LANTus] (100 UNITS/ML) SYG SC (08:20)
[2018-04-03] MEDS: HEPARIN 5,000 UNIT/0.5 ML VIAL SC ×2 (08:20→22:08)
[2018-04-03] MEDS: INSULIN ASPART [NOVOLOG] 3 ML PEN SC ×7 (08:22→22:18)
[2018-04-03] MEDS: FINASTERIDE 5 MG TAB PO (08:23)
[2018-04-03] MEDS: CALCIUM CARBONATE 500 MG CHEW TAB PO ×3 (08:23→22:07)
[2018-04-03] MEDS: TAMSULOSIN (SR) 0.4 MG CAP PO ×2 (08:23→22:07)
[2018-04-03] MEDS: MULTIVITAMINS THERAPEUTIC TAB PO (08:23)
[2018-04-03] MEDS: ASPIRIN 81 MG TAB PO (08:23)
[2018-04-03] MEDS: FAMOTIDINE 20 MG INJ IV (08:24)
[2018-04-03] MEDS: FERROUS SULFATE 60 MG/ML 5ML CUP PO ×2 (08:24→22:07)
[2018-04-03] MEDS: ERGOCALCIFEROL 50,000 UNIT CAP PO (08:40)
[2018-04-03] MEDS: NYSTATIN 15 GM CR TOP ×2 (09:00→21:00)
[2018-04-03] MEDS: LEVOFLOXACIN 750 MG TABLET PO (12:17)
[2018-04-03] MEDS: POTASSIUM CHLORIDE 20 MEQ POWDER FOR ORAL SOLN PO (12:18)
[2018-04-04] MEDS: ACCU-CHEK XX ×5 (02:00→21:00)
[2018-04-04] MEDS: ACETAMINOPHEN 325 MG TAB PO (04:23)
[2018-04-04] MEDS: MULTIVITAMINS THERAPEUTIC TAB PO (08:05)
[2018-04-04] MEDS: ASPIRIN 81 MG TAB PO (08:05)
[2018-04-04] MEDS: CALCIUM CARBONATE 500 MG CHEW TAB PO ×3 (08:05→18:17)
[2018-04-04] MEDS: FAMOTIDINE 20 MG INJ IV (08:05)
[2018-04-04] MEDS: FERROUS SULFATE 60 MG/ML 5ML CUP PO ×2 (08:05→21:45)
[2018-04-04] MEDS: TAMSULOSIN (SR) 0.4 MG CAP PO ×2 (08:05→21:45)
[2018-04-04] MEDS: FINASTERIDE 5 MG TAB PO (08:05)
[2018-04-04] MEDS: HEPARIN 5,000 UNIT/0.5 ML VIAL SC ×2 (08:07→21:46)
[2018-04-04] MEDS: INSULIN ASPART [NOVOLOG] 3 ML PEN SC ×7 (08:08→21:00)
[2018-04-04] MEDS: INSULIN GLARGINE [LANTus] (100 UNITS/ML) SYG SC (08:11)
[2018-04-04] MEDS: NYSTATIN 15 GM CR TOP ×3 (09:00→21:51)
[2018-04-04] MEDS: LEVOFLOXACIN 750 MG TABLET PO (11:42)
[2018-04-05] MEDS: ACCU-CHEK XX ×5 (01:58→20:50)
[2018-04-05] MEDS: ZOLPIDEM 5 MG TAB PO (02:08)
[2018-04-05 07:07] LABS: ALANINE AMINOTRANSFERASE 38 IU/L (13-69); ALBUMIN/GLOBULIN RATIO 0.88; ALKALINE PHOSPHATASE 104 IU/L (42-121); ANION GAP 12 (8-16); ASPARTATE AMINO TRANSFERASE 42 IU/L (15-46); BILIRUBIN,INDIRECT 0.3 mg/dl (0-1.1); BILIRUBIN,TOTAL 0.3 mg/dl (0.2-1.3); BLOOD UREA NITROGEN 9 mg/dl (7-20); CALCIUM 8.6 mg/dl (8.4-10.2); CARBON DIOXIDE 28 mmol/L (21-31); CHLORIDE 101 mmol/L (97-110); CREATININE 0.93 mg/dl (0.61-1.24); GLUCOSE 141 mg/dl (70-220); POTASSIUM 3.4 mmol/L (3.5-5.1); SODIUM 138 mmol/L (135-144); TOTAL PROTEIN 6.4 g/dl (6.1-8.1)
[2018-04-05] MEDS: INSULIN ASPART [NOVOLOG] 3 ML PEN SC ×7 (07:52→20:47)
[2018-04-05] MEDS: FAMOTIDINE 20 MG INJ IV (08:07)
[2018-04-05] MEDS: FINASTERIDE 5 MG TAB PO (08:09)
[2018-04-05] MEDS: INSULIN GLARGINE [LANTus] (100 UNITS/ML) SYG SC (08:09)
[2018-04-05] MEDS: MULTIVITAMINS THERAPEUTIC TAB PO (08:09)
[2018-04-05] MEDS: TAMSULOSIN (SR) 0.4 MG CAP PO ×2 (08:09→20:43)
[2018-04-05] MEDS: ASPIRIN 81 MG TAB PO (08:09)
[2018-04-05] MEDS: CALCIUM CARBONATE 500 MG CHEW TAB PO ×3 (08:09→18:40)
[2018-04-05] MEDS: HEPARIN 5,000 UNIT/0.5 ML VIAL SC ×2 (08:10→20:49)
[2018-04-05] MEDS: NYSTATIN 15 GM CR TOP ×2 (08:10→20:51)
[2018-04-05] MEDS: FERROUS SULFATE 60 MG/ML 5ML CUP PO ×2 (08:15→20:43)
[2018-04-05] MEDS: POTASSIUM CHLORIDE (SR) 20 MEQ TAB PO (12:06)
[2018-04-05] MEDS: CEFTRIAXONE 1 GM/50 ML (PMX) 50 ML IVPB (12:37)
[2018-04-05] MEDS: CLINDAMYCIN 300 MG CAP PO ×2 (17:23→23:50)
[2018-04-06] MEDS: ACCU-CHEK XX ×5 (02:00→21:00)
[2018-04-06] MEDS: CLINDAMYCIN 300 MG CAP PO ×4 (06:06→23:50)
[2018-04-06] MEDS: INSULIN ASPART [NOVOLOG] 3 ML PEN SC ×7 (08:31→21:00)
[2018-04-06] MEDS: INSULIN GLARGINE [LANTus] (100 UNITS/ML) SYG SC (08:32)
[2018-04-06] MEDS: HEPARIN 5,000 UNIT/0.5 ML VIAL SC ×2 (08:33→20:51)
[2018-04-06] MEDS: ASPIRIN 81 MG TAB PO (08:34)
[2018-04-06] MEDS: CALCIUM CARBONATE 500 MG CHEW TAB PO ×3 (08:34→17:39)
[2018-04-06] MEDS: FAMOTIDINE 20 MG INJ IV (08:34)
[2018-04-06] MEDS: TAMSULOSIN (SR) 0.4 MG CAP PO ×2 (08:34→20:50)
[2018-04-06] MEDS: FINASTERIDE 5 MG TAB PO (08:34)
[2018-04-06] MEDS: FERROUS SULFATE 60 MG/ML 5ML CUP PO ×2 (08:34→20:50)
[2018-04-06] MEDS: MULTIVITAMINS THERAPEUTIC TAB PO (08:34)
[2018-04-06] MEDS: NYSTATIN 15 GM CR TOP ×2 (08:35→20:49)
[2018-04-07] MEDS: ACCU-CHEK XX ×5 (02:00→21:00)
[2018-04-07] MEDS: CLINDAMYCIN 300 MG CAP PO ×2 (06:22→12:14)
[2018-04-07] MEDS: INSULIN ASPART [NOVOLOG] 3 ML PEN SC ×7 (08:01→21:00)
[2018-04-07] MEDS: INSULIN GLARGINE [LANTus] (100 UNITS/ML) SYG SC (08:03)
[2018-04-07] MEDS: ASPIRIN 81 MG TAB PO (08:04)
[2018-04-07] MEDS: FAMOTIDINE 20 MG INJ IV (08:04)
[2018-04-07] MEDS: MULTIVITAMINS THERAPEUTIC TAB PO (08:04)
[2018-04-07] MEDS: FERROUS SULFATE 60 MG/ML 5ML CUP PO ×2 (08:04→21:32)
[2018-04-07] MEDS: CALCIUM CARBONATE 500 MG CHEW TAB PO ×3 (08:04→18:26)
[2018-04-07] MEDS: FINASTERIDE 5 MG TAB PO (08:04)
[2018-04-07] MEDS: TAMSULOSIN (SR) 0.4 MG CAP PO ×2 (08:04→21:32)
[2018-04-07] MEDS: HEPARIN 5,000 UNIT/0.5 ML VIAL SC ×2 (08:04→21:40)
[2018-04-07] MEDS: NYSTATIN 15 GM CR TOP ×2 (08:05→21:32)
[2018-04-07] MEDS: CEFTRIAXONE 1 GM/50 ML (PMX) 50 ML IVPB (14:54)
[2018-04-08] MEDS: ACCU-CHEK XX ×6 (02:00→21:43)
[2018-04-08] MEDS: INSULIN ASPART [NOVOLOG] 3 ML PEN SC ×6 (08:00→21:00)
[2018-04-08] MEDS: FERROUS SULFATE 60 MG/ML 5ML CUP PO ×2 (08:45→21:41)
[2018-04-08] MEDS: FINASTERIDE 5 MG TAB PO (08:45)
[2018-04-08] MEDS: MULTIVITAMINS THERAPEUTIC TAB PO (08:45)
[2018-04-08] MEDS: ASPIRIN 81 MG TAB PO (08:45)
[2018-04-08] MEDS: FAMOTIDINE 20 MG INJ IV (08:46)
[2018-04-08] MEDS: CALCIUM CARBONATE 500 MG CHEW TAB PO ×3 (08:46→18:15)
[2018-04-08] MEDS: TAMSULOSIN (SR) 0.4 MG CAP PO ×2 (08:46→21:42)
[2018-04-08] MEDS: INSULIN GLARGINE [LANTus] (100 UNITS/ML) SYG SC (08:47)
[2018-04-08] MEDS: HEPARIN 5,000 UNIT/0.5 ML VIAL SC ×2 (08:48→21:42)
[2018-04-08] MEDS: NYSTATIN 15 GM CR TOP ×2 (08:56→21:43)
[2018-04-08] MEDS: CEFTRIAXONE 1 GM/50 ML (PMX) 50 ML IVPB (15:01)
[2018-04-08] MEDS: REPAGLINIDE 1 MG TAB PO (18:15)
[2018-04-08] MEDS: FAMOTIDINE 20 MG TAB PO (21:41)
[2018-04-08] MEDS: HYDROCODONE/APAP (5/325) TAB PO (21:42)
[2018-04-09] MEDS: INSULIN ASPART [NOVOLOG] 3 ML PEN SC ×4 (08:00→20:55)
[2018-04-09] MEDS: INSULIN GLARGINE [LANTus] (100 UNITS/ML) SYG SC (08:02)
[2018-04-09] MEDS: HEPARIN 5,000 UNIT/0.5 ML VIAL SC ×2 (08:02→20:57)
[2018-04-09] MEDS: FINASTERIDE 5 MG TAB PO (08:03)
[2018-04-09] MEDS: CALCIUM CARBONATE 500 MG CHEW TAB PO ×3 (08:03→18:19)
[2018-04-09] MEDS: TAMSULOSIN (SR) 0.4 MG CAP PO ×2 (08:03→20:55)
[2018-04-09] MEDS: MULTIVITAMINS THERAPEUTIC TAB PO (08:03)
[2018-04-09] MEDS: ASPIRIN 81 MG TAB PO (08:03)
[2018-04-09] MEDS: FERROUS SULFATE 60 MG/ML 5ML CUP PO ×2 (08:03→20:55)
[2018-04-09] MEDS: REPAGLINIDE 1 MG TAB PO ×3 (08:03→17:05)
[2018-04-09] MEDS: NYSTATIN 15 GM CR TOP ×2 (08:04→21:27)
[2018-04-09] MEDS: ACCU-CHEK XX ×4 (08:13→21:00)
[2018-04-09] MEDS: CEFTRIAXONE 1 GM/50 ML (PMX) 50 ML IVPB (14:53)
[2018-04-09] MEDS: FAMOTIDINE 20 MG TAB PO (20:55)
[2018-04-10] MEDS: ACCU-CHEK XX ×5 (01:58→20:52)
[2018-04-10] MEDS: INSULIN ASPART [NOVOLOG] 3 ML PEN SC ×4 (08:00→20:44)
[2018-04-10] MEDS: ERGOCALCIFEROL 50,000 UNIT CAP PO (08:03)
[2018-04-10] MEDS: CALCIUM CARBONATE 500 MG CHEW TAB PO ×3 (08:04→18:35)
[2018-04-10] MEDS: REPAGLINIDE 1 MG TAB PO ×3 (08:04→17:52)
[2018-04-10] MEDS: FINASTERIDE 5 MG TAB PO (08:04)
[2018-04-10] MEDS: ASPIRIN 81 MG TAB PO (08:04)
[2018-04-10] MEDS: MULTIVITAMINS THERAPEUTIC TAB PO (08:04)
[2018-04-10] MEDS: FERROUS SULFATE 60 MG/ML 5ML CUP PO ×2 (08:04→20:51)
[2018-04-10] MEDS: TAMSULOSIN (SR) 0.4 MG CAP PO ×2 (08:04→20:51)
[2018-04-10] MEDS: HEPARIN 5,000 UNIT/0.5 ML VIAL SC ×2 (08:09→20:45)
[2018-04-10] MEDS: INSULIN GLARGINE [LANTus] (100 UNITS/ML) SYG SC (08:10)
[2018-04-10 08:43] LABS: ADD MAN DIFF? NO
[2018-04-10 08:49] LABS: WHITE BLOOD COUNT 8.4 10^3/ul (4.8-10.8)
[2018-04-10 08:49] LABS: BASOPHIL # 0.1 10^3/ul (0.0-0.1); BASOPHILS % 0.7 % (0.0-2.0); EOSINOPHILS # 0.4 10^3/ul (0.0-0.5); EOSINOPHILS % 4.6 % (0.0-7.0); HEMATOCRIT 42.8 % (42.0-52.0); HEMOGLOBIN 14.1 g/dl (14.0-18.0); LYMPHOCYTES # 2.3 10^3/ul (0.8-2.9); LYMPHOCYTES % 26.8 % (15.0-51.0); MEAN CORPUSCULAR HEMOGLOBIN 29.4 pg (29.0-33.0); MEAN CORPUSCULAR HGB CONC 32.9 g/dl (32.0-37.0); MEAN CORPUSCULAR VOLUME 89.2 fl (82.0-101.0); MEAN PLATELET VOLUME 10.4 fl (7.4-10.4); MONOCYTE # 0.8 10^3/ul (0.3-0.9); MONOCYTES % 9.2 % (0.0-11.0); NEUTROPHIL # 4.9 10^3/ul (1.6-7.5); NEUTROPHILS % 58.3 % (39.0-77.0); PLATELET COUNT 368 10^3/UL (140-415)
[2018-04-10] MEDS: NYSTATIN 15 GM CR TOP ×2 (09:00→20:53)
[2018-04-10 09:09] LABS: ANION GAP 11 (8-16); BLOOD UREA NITROGEN 10 mg/dl (7-20); CARBON DIOXIDE 32 mmol/L (21-31); CHLORIDE 100 mmol/L (97-110); CREATININE 0.99 mg/dl (0.61-1.24); GLUCOSE 169 mg/dl (70-220); POTASSIUM 3.8 mmol/L (3.5-5.1); SODIUM 139 mmol/L (135-144)
[2018-04-10] MEDS: CEFTRIAXONE 1 GM/50 ML (PMX) 50 ML IVPB (15:00)
[2018-04-10 19:53] LABS: ANION GAP 11 (8-16); BLOOD UREA NITROGEN 11 mg/dl (7-20); CALCIUM 9.1 mg/dl (8.4-10.2); CARBON DIOXIDE 34 mmol/L (21-31); CHLORIDE 97 mmol/L (97-110); CREATININE 0.98 mg/dl (0.61-1.24); GLUCOSE 183 mg/dl (70-220); POTASSIUM 4.2 mmol/L (3.5-5.1); SODIUM 138 mmol/L (135-144)
[2018-04-10] MEDS: FAMOTIDINE 20 MG TAB PO (20:51)
[2018-04-11] MEDS: ACCU-CHEK XX ×5 (02:00→20:54)
[2018-04-11] MEDS: INSULIN ASPART [NOVOLOG] 3 ML PEN SC ×4 (08:00→20:50)
[2018-04-11] MEDS: INSULIN GLARGINE [LANTus] (100 UNITS/ML) SYG SC (08:05)
[2018-04-11] MEDS: HEPARIN 5,000 UNIT/0.5 ML VIAL SC ×2 (08:06→20:52)
[2018-04-11] MEDS: FINASTERIDE 5 MG TAB PO (08:06)
[2018-04-11] MEDS: MULTIVITAMINS THERAPEUTIC TAB PO (08:06)
[2018-04-11] MEDS: ASPIRIN 81 MG TAB PO (08:06)
[2018-04-11] MEDS: TAMSULOSIN (SR) 0.4 MG CAP PO ×2 (08:06→20:53)
[2018-04-11] MEDS: CALCIUM CARBONATE 500 MG CHEW TAB PO ×3 (08:06→18:26)
[2018-04-11] MEDS: REPAGLINIDE 1 MG TAB PO ×3 (08:07→17:22)
[2018-04-11] MEDS: NYSTATIN 15 GM CR TOP ×2 (08:07→20:54)
[2018-04-11] MEDS: FERROUS SULFATE 60 MG/ML 5ML CUP PO ×2 (08:07→20:53)
[2018-04-11] MEDS: FAMOTIDINE 20 MG TAB PO (20:53)
[2018-04-12] MEDS: ACCU-CHEK XX ×6 (02:00→20:25)
[2018-04-12] MEDS: INSULIN ASPART [NOVOLOG] 3 ML PEN SC ×4 (08:00→20:11)
[2018-04-12] MEDS: FERROUS SULFATE 60 MG/ML 5ML CUP PO ×2 (08:11→20:11)
[2018-04-12] MEDS: CALCIUM CARBONATE 500 MG CHEW TAB PO ×3 (08:11→17:59)
[2018-04-12] MEDS: MULTIVITAMINS THERAPEUTIC TAB PO (08:12)
[2018-04-12] MEDS: HEPARIN 5,000 UNIT/0.5 ML VIAL SC ×2 (08:12→20:13)
[2018-04-12] MEDS: FINASTERIDE 5 MG TAB PO (08:12)
[2018-04-12] MEDS: ASPIRIN 81 MG TAB PO (08:12)
[2018-04-12] MEDS: REPAGLINIDE 1 MG TAB PO ×3 (08:12→17:22)
[2018-04-12] MEDS: TAMSULOSIN (SR) 0.4 MG CAP PO ×2 (08:12→20:11)
[2018-04-12] MEDS: INSULIN GLARGINE [LANTus] (100 UNITS/ML) SYG SC (08:13)
[2018-04-12] MEDS: NYSTATIN 15 GM CR TOP ×2 (08:14→20:13)
[2018-04-12] MEDS: FAMOTIDINE 20 MG TAB PO (20:11)
[2018-04-12] MEDS: HYDROCODONE/APAP (5/325) TAB PO (20:14)
[2018-04-13] MEDS: ACCU-CHEK XX ×5 (07:30→21:00)
[2018-04-13] MEDS: MULTIVITAMINS THERAPEUTIC TAB PO (08:00)
[2018-04-13] MEDS: CALCIUM CARBONATE 500 MG CHEW TAB PO ×3 (08:00→18:04)
[2018-04-13] MEDS: FERROUS SULFATE 60 MG/ML 5ML CUP PO ×2 (08:00→20:49)
[2018-04-13] MEDS: REPAGLINIDE 1 MG TAB PO ×3 (08:00→17:24)
[2018-04-13] MEDS: ASPIRIN 81 MG TAB PO (08:00)
[2018-04-13] MEDS: INSULIN ASPART [NOVOLOG] 3 ML PEN SC ×4 (08:00→21:00)
[2018-04-13] MEDS: FINASTERIDE 5 MG TAB PO (08:00)
[2018-04-13] MEDS: TAMSULOSIN (SR) 0.4 MG CAP PO ×2 (08:00→20:49)
[2018-04-13] MEDS: HEPARIN 5,000 UNIT/0.5 ML VIAL SC ×2 (08:02→20:51)
[2018-04-13] MEDS: INSULIN GLARGINE [LANTus] (100 UNITS/ML) SYG SC (08:02)
[2018-04-13] MEDS: NYSTATIN 15 GM CR TOP (08:03)
[2018-04-13] MEDS: FAMOTIDINE 20 MG TAB PO (20:49)
[2018-04-14] MEDS: NYSTATIN 15 GM CR TOP ×3 (01:54→20:44)
[2018-04-14] MEDS: ACCU-CHEK XX ×5 (02:00→21:00)
[2018-04-14] MEDS: INSULIN ASPART [NOVOLOG] 3 ML PEN SC ×4 (07:57→20:50)
[2018-04-14] MEDS: INSULIN GLARGINE [LANTus] (100 UNITS/ML) SYG SC (08:17)
[2018-04-14] MEDS: HEPARIN 5,000 UNIT/0.5 ML VIAL SC ×2 (08:18→20:49)
[2018-04-14] MEDS: TAMSULOSIN (SR) 0.4 MG CAP PO ×2 (08:18→20:44)
[2018-04-14] MEDS: FINASTERIDE 5 MG TAB PO (08:18)
[2018-04-14] MEDS: ASPIRIN 81 MG TAB PO (08:19)
[2018-04-14] MEDS: CALCIUM CARBONATE 500 MG CHEW TAB PO ×3 (08:19→18:21)
[2018-04-14] MEDS: REPAGLINIDE 1 MG TAB PO ×3 (08:19→17:42)
[2018-04-14] MEDS: MULTIVITAMINS THERAPEUTIC TAB PO (08:19)
[2018-04-14] MEDS: FERROUS SULFATE 60 MG/ML 5ML CUP PO ×2 (08:19→20:44)
[2018-04-14] MEDS: FAMOTIDINE 20 MG TAB PO (20:44)
[2018-04-15] MEDS: ACCU-CHEK XX ×5 (02:00→21:00)
[2018-04-15] MEDS: INSULIN ASPART [NOVOLOG] 3 ML PEN SC ×4 (07:57→21:00)
[2018-04-15] MEDS: REPAGLINIDE 1 MG TAB PO ×3 (07:58→17:37)
[2018-04-15] MEDS: INSULIN GLARGINE [LANTus] (100 UNITS/ML) SYG SC (07:59)
[2018-04-15] MEDS: CALCIUM CARBONATE 500 MG CHEW TAB PO ×3 (08:33→19:17)
[2018-04-15] MEDS: FERROUS SULFATE 60 MG/ML 5ML CUP PO ×2 (08:33→21:10)
[2018-04-15] MEDS: HEPARIN 5,000 UNIT/0.5 ML VIAL SC ×2 (08:33→21:18)
[2018-04-15] MEDS: MULTIVITAMINS THERAPEUTIC TAB PO (08:33)
[2018-04-15] MEDS: ASPIRIN 81 MG TAB PO (08:33)
[2018-04-15] MEDS: FINASTERIDE 5 MG TAB PO (08:33)
[2018-04-15] MEDS: TAMSULOSIN (SR) 0.4 MG CAP PO ×2 (08:33→21:10)
[2018-04-15] MEDS: NYSTATIN 15 GM CR TOP ×2 (08:34→21:11)
[2018-04-15] MEDS: FAMOTIDINE 20 MG TAB PO (21:10)
[2018-04-16] MEDS: ACCU-CHEK XX ×5 (02:00→20:25)
[2018-04-16] MEDS: INSULIN ASPART [NOVOLOG] 3 ML PEN SC ×4 (08:00→20:15)
[2018-04-16] MEDS: TAMSULOSIN (SR) 0.4 MG CAP PO ×2 (08:07→20:15)
[2018-04-16] MEDS: FINASTERIDE 5 MG TAB PO (08:07)
[2018-04-16] MEDS: MULTIVITAMINS THERAPEUTIC TAB PO (08:07)
[2018-04-16] MEDS: ASPIRIN 81 MG TAB PO (08:07)
[2018-04-16] MEDS: FERROUS SULFATE 60 MG/ML 5ML CUP PO ×2 (08:07→20:14)
[2018-04-16] MEDS: CALCIUM CARBONATE 500 MG CHEW TAB PO ×3 (08:09→19:26)
[2018-04-16] MEDS: REPAGLINIDE 1 MG TAB PO ×3 (08:09→17:42)
[2018-04-16] MEDS: INSULIN GLARGINE [LANTus] (100 UNITS/ML) SYG SC (08:13)
[2018-04-16] MEDS: NYSTATIN 15 GM CR TOP ×2 (08:14→20:16)
[2018-04-16] MEDS: HEPARIN 5,000 UNIT/0.5 ML VIAL SC ×2 (08:14→20:15)
[2018-04-16] MEDS: FAMOTIDINE 20 MG TAB PO (20:14)
[2018-04-17] MEDS: ACCU-CHEK XX ×5 (02:00→20:57)
[2018-04-17] MEDS: REPAGLINIDE 1 MG TAB PO ×3 (08:00→17:41)
[2018-04-17] MEDS: INSULIN ASPART [NOVOLOG] 3 ML PEN SC ×4 (08:00→20:50)
[2018-04-17] MEDS: INSULIN GLARGINE [LANTus] (100 UNITS/ML) SYG SC (08:01)
[2018-04-17] MEDS: FERROUS SULFATE 60 MG/ML 5ML CUP PO ×2 (08:34→20:46)
[2018-04-17] MEDS: FINASTERIDE 5 MG TAB PO (08:34)
[2018-04-17] MEDS: TAMSULOSIN (SR) 0.4 MG CAP PO ×2 (08:34→20:45)
[2018-04-17] MEDS: CALCIUM CARBONATE 500 MG CHEW TAB PO ×3 (08:34→18:27)
[2018-04-17] MEDS: ASPIRIN 81 MG TAB PO (08:34)
[2018-04-17] MEDS: MULTIVITAMINS THERAPEUTIC TAB PO (08:34)
[2018-04-17] MEDS: HEPARIN 5,000 UNIT/0.5 ML VIAL SC ×2 (08:35→20:52)
[2018-04-17] MEDS: NYSTATIN 15 GM CR TOP ×2 (08:37→20:55)
[2018-04-17] MEDS: ERGOCALCIFEROL 50,000 UNIT CAP PO (08:38)
[2018-04-17] MEDS: FAMOTIDINE 20 MG TAB PO (20:46)
[2018-04-18] MEDS: ACCU-CHEK XX ×5 (02:00→21:09)
[2018-04-18] MEDS: INSULIN ASPART [NOVOLOG] 3 ML PEN SC ×4 (08:00→21:04)
[2018-04-18] MEDS: HEPARIN 5,000 UNIT/0.5 ML VIAL SC ×2 (08:06→21:01)
[2018-04-18] MEDS: FERROUS SULFATE 60 MG/ML 5ML CUP PO ×2 (08:07→20:55)
[2018-04-18] MEDS: INSULIN GLARGINE [LANTus] (100 UNITS/ML) SYG SC (08:07)
[2018-04-18] MEDS: TAMSULOSIN (SR) 0.4 MG CAP PO ×2 (08:08→20:58)
[2018-04-18] MEDS: ASPIRIN 81 MG TAB PO (08:08)
[2018-04-18] MEDS: FINASTERIDE 5 MG TAB PO (08:08)
[2018-04-18] MEDS: REPAGLINIDE 1 MG TAB PO ×3 (08:08→17:51)
[2018-04-18] MEDS: MULTIVITAMINS THERAPEUTIC TAB PO (08:08)
[2018-04-18] MEDS: CALCIUM CARBONATE 500 MG CHEW TAB PO ×3 (08:08→18:01)
[2018-04-18] MEDS: NYSTATIN 15 GM CR TOP ×2 (08:10→21:13)
[2018-04-18] MEDS: FAMOTIDINE 20 MG TAB PO (20:54)
[2018-04-19] MEDS: ACCU-CHEK XX ×5 (02:00→21:45)
[2018-04-19] MEDS: INSULIN ASPART [NOVOLOG] 3 ML PEN SC ×4 (08:00→21:00)
[2018-04-19] MEDS: HEPARIN 5,000 UNIT/0.5 ML VIAL SC ×2 (08:44→20:56)
[2018-04-19] MEDS: ASPIRIN 81 MG TAB PO (08:45)
[2018-04-19] MEDS: CALCIUM CARBONATE 500 MG CHEW TAB PO ×3 (08:45→18:19)
[2018-04-19] MEDS: FERROUS SULFATE 60 MG/ML 5ML CUP PO ×2 (08:45→20:53)
[2018-04-19] MEDS: INSULIN GLARGINE [LANTus] (100 UNITS/ML) SYG SC (08:45)
[2018-04-19] MEDS: REPAGLINIDE 1 MG TAB PO ×3 (08:45→17:48)
[2018-04-19] MEDS: MULTIVITAMINS THERAPEUTIC TAB PO (08:45)
[2018-04-19] MEDS: TAMSULOSIN (SR) 0.4 MG CAP PO ×2 (08:45→20:52)
[2018-04-19] MEDS: FINASTERIDE 5 MG TAB PO (08:50)
[2018-04-19] MEDS: NYSTATIN 15 GM CR TOP ×2 (08:57→21:45)
[2018-04-19] MEDS ORDERED: HALOPERIDOL 5 MG INJ IM ×2 (15:00→15:30)
[2018-04-19] MEDS: FAMOTIDINE 20 MG TAB PO (20:52)
[2018-04-20] MEDS: ACCU-CHEK XX ×5 (02:00→20:50)
[2018-04-20] MEDS: INSULIN ASPART [NOVOLOG] 3 ML PEN SC ×4 (08:00→20:49)
[2018-04-20] MEDS: TAMSULOSIN (SR) 0.4 MG CAP PO ×2 (08:42→20:25)
[2018-04-20] MEDS: CALCIUM CARBONATE 500 MG CHEW TAB PO ×3 (08:42→19:30)
[2018-04-20] MEDS: REPAGLINIDE 1 MG TAB PO ×3 (08:42→17:24)
[2018-04-20] MEDS: MULTIVITAMINS THERAPEUTIC TAB PO (08:42)
[2018-04-20] MEDS: ASPIRIN 81 MG TAB PO (08:42)
[2018-04-20] MEDS: FERROUS SULFATE 60 MG/ML 5ML CUP PO ×2 (08:42→20:25)
[2018-04-20] MEDS: FINASTERIDE 5 MG TAB PO (08:42)
[2018-04-20] MEDS: HEPARIN 5,000 UNIT/0.5 ML VIAL SC ×2 (08:43→20:28)
[2018-04-20] MEDS: INSULIN GLARGINE [LANTus] (100 UNITS/ML) SYG SC (08:44)
[2018-04-20] MEDS: NYSTATIN 15 GM CR TOP ×2 (08:53→20:47)
[2018-04-20] MEDS: FAMOTIDINE 20 MG TAB PO (20:25)
[2018-04-20] MEDS: ACETAMINOPHEN 325 MG TAB PO (20:47)
[2018-04-21] MEDS: ACCU-CHEK XX ×5 (02:00→20:16)
[2018-04-21] MEDS: ACETAMINOPHEN 325 MG TAB PO (04:49)
[2018-04-21] MEDS: INSULIN ASPART [NOVOLOG] 3 ML PEN SC ×4 (08:00→20:16)
[2018-04-21] MEDS: REPAGLINIDE 1 MG TAB PO ×3 (08:43→17:18)
[2018-04-21] MEDS: HEPARIN 5,000 UNIT/0.5 ML VIAL SC (08:43)
[2018-04-21] MEDS: INSULIN GLARGINE [LANTus] (100 UNITS/ML) SYG SC (08:43)
[2018-04-21] MEDS: CALCIUM CARBONATE 500 MG CHEW TAB PO ×3 (08:43→18:30)
[2018-04-21] MEDS: ASPIRIN 81 MG TAB PO (08:43)
[2018-04-21] MEDS: FINASTERIDE 5 MG TAB PO (08:43)
[2018-04-21] MEDS: MULTIVITAMINS THERAPEUTIC TAB PO (08:44)
[2018-04-21] MEDS: FERROUS SULFATE 60 MG/ML 5ML CUP PO ×2 (08:44→20:15)
[2018-04-21] MEDS: TAMSULOSIN (SR) 0.4 MG CAP PO ×2 (08:44→20:16)
[2018-04-21] MEDS: NYSTATIN 15 GM CR TOP ×2 (08:44→20:17)
[2018-04-21] MEDS: FAMOTIDINE 20 MG TAB PO (20:16)
[2018-04-21 22:04] LABS: ADD MAN DIFF? NO
[2018-04-21 22:05] LABS: WHITE BLOOD COUNT 8.9 10^3/ul (4.8-10.8)
[2018-04-21 22:05] LABS: BASOPHILS % 0.4 % (0.0-2.0); EOSINOPHILS # 0.3 10^3/ul (0.0-0.5); EOSINOPHILS % 3.8 % (0.0-7.0); HEMATOCRIT 39.4 % (42.0-52.0); HEMOGLOBIN 12.8 g/dl (14.0-18.0); LYMPHOCYTES # 2.1 10^3/ul (0.8-2.9); LYMPHOCYTES % 23.5 % (15.0-51.0); MEAN CORPUSCULAR HEMOGLOBIN 30.2 pg (29.0-33.0); MEAN CORPUSCULAR HGB CONC 32.5 g/dl (32.0-37.0); MEAN CORPUSCULAR VOLUME 92.9 fl (82.0-101.0); MEAN PLATELET VOLUME 10.1 fl (7.4-10.4); MONOCYTE # 0.7 10^3/ul (0.3-0.9); MONOCYTES % 8.2 % (0.0-11.0); NEUTROPHIL # 5.7 10^3/ul (1.6-7.5); NEUTROPHILS % 63.8 % (39.0-77.0); PLATELET COUNT 304 10^3/UL (140-415); RED BLOOD COUNT 4.24 10^6/ul (4.70-6.10); RED CELL DISTRIBUTION WIDTH 13.5 % (11.5-14.5)
[2018-04-21 22:25] LABS: ANION GAP 14 (8-16); BLOOD UREA NITROGEN 22 mg/dl (7-20); CALCIUM 9.4 mg/dl (8.4-10.2); CARBON DIOXIDE 31 mmol/L (21-31); CHLORIDE 101 mmol/L (97-110); CREATININE 1.01 mg/dl (0.61-1.24); GLUCOSE 130 mg/dl (70-220); POTASSIUM 4.7 mmol/L (3.5-5.1); SODIUM 141 mmol/L (135-144)
[2018-04-22] MEDS: ACCU-CHEK XX ×5 (02:00→21:00)
[2018-04-22] MEDS: INSULIN ASPART [NOVOLOG] 3 ML PEN SC ×4 (08:00→20:58)
[2018-04-22] MEDS: INSULIN GLARGINE [LANTus] (100 UNITS/ML) SYG SC (08:21)
[2018-04-22] MEDS: ASPIRIN 81 MG TAB PO (08:22)
[2018-04-22] MEDS: REPAGLINIDE 1 MG TAB PO ×3 (08:22→17:30)
[2018-04-22] MEDS: NYSTATIN 15 GM CR TOP ×2 (08:23→20:53)
[2018-04-22] MEDS: FINASTERIDE 5 MG TAB PO (08:23)
[2018-04-22] MEDS: TAMSULOSIN (SR) 0.4 MG CAP PO ×2 (08:23→20:52)
[2018-04-22] MEDS: FERROUS SULFATE 60 MG/ML 5ML CUP PO ×2 (08:23→20:52)
[2018-04-22] MEDS: CALCIUM CARBONATE 500 MG CHEW TAB PO ×3 (08:23→18:12)
[2018-04-22] MEDS: MULTIVITAMINS THERAPEUTIC TAB PO (08:23)
[2018-04-22] MEDS: FAMOTIDINE 20 MG TAB PO (20:52)
[2018-04-23] MEDS: ACCU-CHEK XX ×6 (02:00→20:30)
[2018-04-23] MEDS: INSULIN ASPART [NOVOLOG] 3 ML PEN SC ×4 (07:59→20:29)
[2018-04-23] MEDS: INSULIN GLARGINE [LANTus] (100 UNITS/ML) SYG SC (08:01)
[2018-04-23] MEDS: REPAGLINIDE 1 MG TAB PO ×3 (08:03→17:28)
[2018-04-23] MEDS: FINASTERIDE 5 MG TAB PO (08:27)
[2018-04-23] MEDS: ASPIRIN 81 MG TAB PO (08:27)
[2018-04-23] MEDS: TAMSULOSIN (SR) 0.4 MG CAP PO ×2 (08:27→20:29)
[2018-04-23] MEDS: NYSTATIN 15 GM CR TOP ×2 (08:27→20:30)
[2018-04-23] MEDS: MULTIVITAMINS THERAPEUTIC TAB PO (08:27)
[2018-04-23] MEDS: CALCIUM CARBONATE 500 MG CHEW TAB PO ×3 (08:27→18:45)
[2018-04-23] MEDS: FERROUS SULFATE 60 MG/ML 5ML CUP PO ×2 (08:27→20:29)
[2018-04-23] MEDS: HYDROCODONE/APAP (5/325) TAB PO (20:29)
[2018-04-23] MEDS: FAMOTIDINE 20 MG TAB PO (20:29)
[2018-04-24] MEDS: INSULIN ASPART [NOVOLOG] 3 ML PEN SC ×4 (08:00→20:18)
[2018-04-24] MEDS: ASPIRIN 81 MG TAB PO (08:18)
[2018-04-24] MEDS: CALCIUM CARBONATE 500 MG CHEW TAB PO ×3 (08:18→17:02)
[2018-04-24] MEDS: TAMSULOSIN (SR) 0.4 MG CAP PO ×2 (08:18→20:19)
[2018-04-24] MEDS: MULTIVITAMINS THERAPEUTIC TAB PO (08:18)
[2018-04-24] MEDS: REPAGLINIDE 1 MG TAB PO ×3 (08:18→17:01)
[2018-04-24] MEDS: FERROUS SULFATE 60 MG/ML 5ML CUP PO ×2 (08:18→20:19)
[2018-04-24] MEDS: FINASTERIDE 5 MG TAB PO (08:19)
[2018-04-24] MEDS: INSULIN GLARGINE [LANTus] (100 UNITS/ML) SYG SC (08:19)
[2018-04-24] MEDS: ACCU-CHEK XX ×4 (08:19→20:21)
[2018-04-24] MEDS: ERGOCALCIFEROL 50,000 UNIT CAP PO (08:19)
[2018-04-24] MEDS: NYSTATIN 15 GM CR TOP ×2 (09:00→20:23)
[2018-04-24] MEDS: FAMOTIDINE 20 MG TAB PO (20:19)
[2018-04-25] MEDS: ACCU-CHEK XX ×5 (02:00→20:48)
[2018-04-25] MEDS: INSULIN ASPART [NOVOLOG] 3 ML PEN SC ×4 (08:00→20:47)
[2018-04-25] MEDS: TAMSULOSIN (SR) 0.4 MG CAP PO ×2 (08:09→20:47)
[2018-04-25] MEDS: FERROUS SULFATE 60 MG/ML 5ML CUP PO ×2 (08:09→20:47)
[2018-04-25] MEDS: REPAGLINIDE 1 MG TAB PO ×3 (08:09→17:35)
[2018-04-25] MEDS: FINASTERIDE 5 MG TAB PO (08:09)
[2018-04-25] MEDS: MULTIVITAMINS THERAPEUTIC TAB PO (08:09)
[2018-04-25] MEDS: CALCIUM CARBONATE 500 MG CHEW TAB PO ×3 (08:09→18:58)
[2018-04-25] MEDS: ASPIRIN 81 MG TAB PO (08:09)
[2018-04-25] MEDS: INSULIN GLARGINE [LANTus] (100 UNITS/ML) SYG SC (08:10)
[2018-04-25] MEDS: NYSTATIN 15 GM CR TOP ×2 (08:11→20:49)
[2018-04-25] MEDS: FAMOTIDINE 20 MG TAB PO (20:47)
[2018-04-25] MEDS: ARIPIPRAZOLE 10 MG TAB PO (20:48)
[2018-04-26] MEDS: ACCU-CHEK XX ×5 (02:00→21:00)
[2018-04-26] MEDS: FINASTERIDE 5 MG TAB PO ×2 (08:29→08:32)
[2018-04-26] MEDS: CALCIUM CARBONATE 500 MG CHEW TAB PO ×3 (08:29→21:07)
[2018-04-26] MEDS: TAMSULOSIN (SR) 0.4 MG CAP PO ×2 (08:29→21:07)
[2018-04-26] MEDS: REPAGLINIDE 1 MG TAB PO ×3 (08:29→17:40)
[2018-04-26] MEDS: FERROUS SULFATE 60 MG/ML 5ML CUP PO ×2 (08:29→21:07)
[2018-04-26] MEDS: MULTIVITAMINS THERAPEUTIC TAB PO (08:29)
[2018-04-26] MEDS: ASPIRIN 81 MG TAB PO (08:29)
[2018-04-26] MEDS: INSULIN ASPART [NOVOLOG] 3 ML PEN SC ×4 (08:30→21:00)
[2018-04-26] MEDS: INSULIN GLARGINE [LANTus] (100 UNITS/ML) SYG SC (08:31)
[2018-04-26] MEDS: NYSTATIN 15 GM CR TOP ×2 (08:32→21:08)
[2018-04-26] MEDS: FAMOTIDINE 20 MG TAB PO (21:07)
[2018-04-26] MEDS: ARIPIPRAZOLE 10 MG TAB PO (21:07)
[2018-04-27] MEDS: ACCU-CHEK XX ×5 (02:00→21:00)
[2018-04-27] MEDS: INSULIN ASPART [NOVOLOG] 3 ML PEN SC ×4 (08:00→20:57)
[2018-04-27] MEDS: TAMSULOSIN (SR) 0.4 MG CAP PO ×2 (08:08→20:48)
[2018-04-27] MEDS: FERROUS SULFATE 60 MG/ML 5ML CUP PO ×2 (08:08→20:48)
[2018-04-27] MEDS: ASPIRIN 81 MG TAB PO (08:08)
[2018-04-27] MEDS: FINASTERIDE 5 MG TAB PO (08:08)
[2018-04-27] MEDS: REPAGLINIDE 1 MG TAB PO ×3 (08:08→17:39)
[2018-04-27] MEDS: CALCIUM CARBONATE 500 MG CHEW TAB PO ×3 (08:09→18:38)
[2018-04-27] MEDS: MULTIVITAMINS THERAPEUTIC TAB PO (08:09)
[2018-04-27] MEDS: NYSTATIN 15 GM CR TOP ×2 (08:09→20:48)
[2018-04-27] MEDS: INSULIN GLARGINE [LANTus] (100 UNITS/ML) SYG SC (08:10)
[2018-04-27] MEDS: [UNRECOGNIZED DRUG - REMARK] XX ×2 (11:57→21:00)
[2018-04-27] MEDS: FAMOTIDINE 20 MG TAB PO (20:48)
[2018-04-27] MEDS: ARIPIPRAZOLE 10 MG TAB PO (20:48)
[2018-04-28] MEDS: ACCU-CHEK XX ×5 (02:00→21:00)
[2018-04-28] MEDS: INSULIN ASPART [NOVOLOG] 3 ML PEN SC ×4 (08:00→21:00)
[2018-04-28] MEDS: INSULIN GLARGINE [LANTus] (100 UNITS/ML) SYG SC (08:02)
[2018-04-28] MEDS: FINASTERIDE 5 MG TAB PO (08:02)
[2018-04-28] MEDS: FERROUS SULFATE 60 MG/ML 5ML CUP PO ×2 (08:02→20:43)
[2018-04-28] MEDS: CALCIUM CARBONATE 500 MG CHEW TAB PO ×3 (08:03→17:51)
[2018-04-28] MEDS: TAMSULOSIN (SR) 0.4 MG CAP PO ×2 (08:03→20:45)
[2018-04-28] MEDS: ASPIRIN 81 MG TAB PO (08:03)
[2018-04-28] MEDS: REPAGLINIDE 1 MG TAB PO ×3 (08:03→17:35)
[2018-04-28] MEDS: MULTIVITAMINS THERAPEUTIC TAB PO (08:03)
[2018-04-28] MEDS: NYSTATIN 15 GM CR TOP (08:04)
[2018-04-28] MEDS: [UNRECOGNIZED DRUG - REMARK] XX (09:00)
[2018-04-28] MEDS: FAMOTIDINE 20 MG TAB PO (20:43)
[2018-04-28] MEDS: ARIPIPRAZOLE 10 MG TAB PO (20:43)
[2018-04-28] MEDS: ACETAMINOPHEN 325 MG TAB PO (20:57)
[2018-04-29] MEDS: ACCU-CHEK XX ×5 (02:00→20:57)
[2018-04-29] MEDS: INSULIN ASPART [NOVOLOG] 3 ML PEN SC ×4 (08:00→20:57)
[2018-04-29] MEDS: INSULIN GLARGINE [LANTus] (100 UNITS/ML) SYG SC (08:02)
[2018-04-29] MEDS: ASPIRIN 81 MG TAB PO (08:03)
[2018-04-29] MEDS: REPAGLINIDE 1 MG TAB PO ×3 (08:03→17:09)
[2018-04-29] MEDS: CALCIUM CARBONATE 500 MG CHEW TAB PO ×3 (08:03→17:46)
[2018-04-29] MEDS: TAMSULOSIN (SR) 0.4 MG CAP PO ×2 (08:03→20:56)
[2018-04-29] MEDS: FERROUS SULFATE 60 MG/ML 5ML CUP PO ×2 (08:03→20:56)
[2018-04-29] MEDS: FINASTERIDE 5 MG TAB PO (08:03)
[2018-04-29] MEDS: MULTIVITAMINS THERAPEUTIC TAB PO (08:03)
[2018-04-29] MEDS: ARIPIPRAZOLE 10 MG TAB PO (20:56)
[2018-04-29] MEDS: FAMOTIDINE 20 MG TAB PO (20:56)
[2018-04-30] MEDS: ACCU-CHEK XX ×6 (02:00→23:25)
[2018-04-30] MEDS: INSULIN ASPART [NOVOLOG] 3 ML PEN SC ×4 (08:00→20:35)
[2018-04-30] MEDS: MULTIVITAMINS THERAPEUTIC TAB PO (08:39)
[2018-04-30] MEDS: ASPIRIN 81 MG TAB PO (08:39)
[2018-04-30] MEDS: FINASTERIDE 5 MG TAB PO (08:39)
[2018-04-30] MEDS: FERROUS SULFATE 60 MG/ML 5ML CUP PO ×2 (08:40→20:35)
[2018-04-30] MEDS: REPAGLINIDE 1 MG TAB PO ×3 (08:40→17:27)
[2018-04-30] MEDS: CALCIUM CARBONATE 500 MG CHEW TAB PO ×3 (08:42→18:40)
[2018-04-30] MEDS: TAMSULOSIN (SR) 0.4 MG CAP PO ×2 (08:46→20:35)
[2018-04-30] MEDS: INSULIN GLARGINE [LANTus] (100 UNITS/ML) SYG SC (08:47)
[2018-04-30] MEDS: ARIPIPRAZOLE 10 MG TAB PO (20:35)
[2018-04-30] MEDS: FAMOTIDINE 20 MG TAB PO (20:35)
[2018-05-01] MEDS: INSULIN ASPART [NOVOLOG] 3 ML PEN SC ×3 (08:00→16:43)
[2018-05-01] MEDS: ACCU-CHEK XX ×3 (08:12→16:43)
[2018-05-01] MEDS: FINASTERIDE 5 MG TAB PO (08:23)
[2018-05-01] MEDS: FERROUS SULFATE 60 MG/ML 5ML CUP PO (08:23)
[2018-05-01] MEDS: TAMSULOSIN (SR) 0.4 MG CAP PO (08:23)
[2018-05-01] MEDS: ASPIRIN 81 MG TAB PO (08:23)
[2018-05-01] MEDS: MULTIVITAMINS THERAPEUTIC TAB PO (08:23)
[2018-05-01] MEDS: CALCIUM CARBONATE 500 MG CHEW TAB PO ×3 (08:23→16:48)
[2018-05-01] MEDS: REPAGLINIDE 1 MG TAB PO ×3 (08:23→16:48)
[2018-05-01] MEDS: ERGOCALCIFEROL 50,000 UNIT CAP PO (08:30)
[2018-05-01] MEDS: INSULIN GLARGINE [LANTus] (100 UNITS/ML) SYG SC (08:30)
[2018-05-01] MEDS ORDERED: VITAMIN A & D 5 GM OINT PACKET TOP (09:52)
[2018-05-01] MEDS: DOCUSATE SODIUM 100 MG CAP PO (10:18)
[2018-05-01] MEDS: MAGNESIUM HYDROXIDE 30ML CUP PO (10:18)
== END 2018-05-01 17:36 | DRG 871 ==
LOC: PP2 04-03 03:16 → TEL 03-28 14:18 → PP2 03-31 13:14 → E/R 11:53 → ICU 13:51
PROVIDERS: Hospitalist
DX: A41.9 Sepsis, unspecified organism (principal); E11.01 Type 2 diabetes mellitus with hyperosmolarity with coma; G93.41 Metabolic encephalopathy; I21.A1 Myocardial infarction type 2; N39.0 Urinary tract infection, site not specified; E87.1 Hypo-osmolality and hyponatremia; N17.9 Acute kidney failure, unspecified; E87.0 Hyperosmolality and hypernatremia; E87.2 Acidosis; N13.30 Unspecified hydronephrosis; B35.4 Tinea corporis; L98.419 Non-pressure chronic ulcer of buttock with unspecified severity; D50.9 Iron deficiency anemia, unspecified; E83.51 Hypocalcemia; F25.9 Schizoaffective disorder, unspecified; F09 Unspecified mental disorder due to known physiological condition; K80.20 Calculus of gallbladder without cholecystitis without obstruction; N40.1 Benign prostatic hyperplasia with lower urinary tract symptoms; R33.8 Other retention of urine; Z79.84 Long term (current) use of oral hypoglycemic drugs
CPT/HCPCS: 36415; 36600; 70450; 71045; 74176; 76775; 80048; 80053; 80061; 81001; 81003; 82010; 82150; 82306; 82330; 82550; 82553; 82570; 82607; 82728; 82803; 82962; 83036; 83540; 83605; 83690; 83735; 83970; 84100; 84155; 84165; 84300; 84439; 84443; 84484; 85025; 85610; 85730; 87040; 87081; 87086; 87255; 89190; 92526; 92610; 93005; 93306; 93922; 96365; 96375; 97110; 97116; 97161; 97530; 99291-25